=== PATIENT | female | born 1980 | race Caucasian/White ===

== ENCOUNTER 2018-09-12 20:40 | Inpatient (IN) | payer BC, OTHER ==
[~2018-09-12] VITALS: Ht 152.4 cm; Wt 76.2 kg
[2018-09-12] MEDS ORDERED: FAMOTIDINE 20MG/2ML VIAL IV STA (21:09)
[2018-09-12] MEDS ORDERED: SODIUM CHLORIDE 0.9% 1,000 ML IV ONE (21:09)
[2018-09-12] MEDS ORDERED: KETOROLAC 30MG/ML VIAL IV STA (21:09)
[2018-09-12] MEDS ORDERED: ONDANSETRON HCL 4MG/2ML INJ IV STA (21:09)
[2018-09-12] MEDS ORDERED: METRONIDAZOLE 500 MG PREMIX 100 ML IV ONE (21:15)
[2018-09-12 21:59] LABS: BASOPHILS % 0.5 % (0.0-2.0); EOSINOPHILS % 0.4 % (0.0-5.0); HEMATOCRIT. 39.1 % (36.0-48.0); HEMOGLOBIN. 12.9 g/dL (12.0-16.0); LYMPHOCYTES % 10.3 % (20.0-50.0); MEAN CORPUSCULAR HEMOGLOBIN 26.4 pg (28.0-32.0); MEAN CORPUSCULAR VOLUME 80.4 fL (81.0-99.0); MEAN PLATELET VOLUME 10.1 fl (7.4-10.4); NEUTROPHILS % 85.8 % (40.0-76.0); PLATELET 217 x1000/uL (130-400); RED BLOOD CELL COUNT 4.87 mill/uL (4.2-5.4); RED CELL DISTRIBUTION WIDTH 15.2 % (11.6-14.6)
[2018-09-12 22:03] LABS: CHLORIDE 106 mEq/L (98-107)
[2018-09-12 22:23] LABS: HCG SCREEN NEGATIVE
[2018-09-12 23:32] LABS: CLARITY URINE CLOUDY (CLEAR); COLOR URINE YELLOW (YELLOW); KETONES URINE 4+ (NEGATIVE); LEUKOCYTE ESTERASE URINE NEGATIVE (NEGATIVE); NITRITE URINE NEGATIVE (NEGATIVE); OCCULT BLOOD URINE NEGATIVE (NEGATIVE); PROTEIN URINE NEGATIVE (NEGATIVE); SPECIFIC GRAVITY URINE 1.031 (1.005-1.030); UROBILINOGEN URINE 0.2 E.U./dL (0.2-1.0)
[2018-09-13] MEDS ORDERED: LEVOFLOXACIN 750MG PREMIX 150 ML IV ONE (02:15)
[2018-09-13] MEDS ORDERED: IOHEXOL-300 100 ML BOTTLE ONE (03:02)
[2018-09-13] MEDS ORDERED: MAGNESIUM/ALUMINUM HYDROXIDE/SIMETHICONE 30ML UDC PO PRN (05:45)
[2018-09-13] MEDS ORDERED: MORPHINE SULFATE 4 MG/ML CPJ (NOT FOR IM USE) IV PRN (05:45)
[2018-09-13] MEDS ORDERED: IPRATROPIUM/ALBUTEROL 0.5-3(2.5)MG/3ML NEB INH PRN (05:45)
[2018-09-13] MEDS ORDERED: CLONIDINE 0.1MG TABLET PO PRN (05:45)
[2018-09-13] MEDS ORDERED: DIPHENHYDRAMINE 50MG/ML VIAL IV PRN (05:45)
[2018-09-13] MEDS ORDERED: LORAZEPAM 2MG/ML CPJ IV PRN (05:45)
[2018-09-13] MEDS ORDERED: GUAIFENESIN 200MG/10ML SUGAR FREE UDC PO PRN (05:45)
[2018-09-13] MEDS ORDERED: DOCUSATE SODIUM 100MG CAPSULE PO PRN (05:45)
[2018-09-13] MEDS ORDERED: HYDROCODONE/ACETAMINOPHEN 5/325MG TABLET PO PRN (05:45)
[2018-09-13] MEDS ORDERED: LEVOFLOXACIN 500MG PREMIX 100 ML IV SCH ×2 (05:45→21:00)
[2018-09-13] MEDS ORDERED: NA PHOS,M-B/NA PHOS,DI-BA ENEMA 118ML PR PRN (05:45)
[2018-09-13] MEDS ORDERED: ONDANSETRON HCL 4MG/2ML INJ IV PRN (05:45)
[2018-09-13] MEDS ORDERED: METRONIDAZOLE 500 MG PREMIX 100 ML IV SCH ×2 (06:00→06:30)
[2018-09-13 07:04] LABS: CHLORIDE 108 mEq/L (98-107)
[2018-09-13 09:16] VITALS: BP 134/54
[2018-09-13 09:21] VITALS: BP 134/54
[2018-09-13] MEDS: ACETAMINOPHEN 325MG TABLET PO PRN ×2 (09:43→20:03)
[2018-09-13] MEDS: SODIUM CHLORIDE 0.45% 1,000 ML IV SCH (11:59)
[2018-09-13] MEDS: METRONIDAZOLE 500 MG PREMIX 100 ML IV SCH ×3 (11:59→22:05)
[2018-09-13] MEDS: ENOXAPARIN 40MG/0.4ML SYR SUBCUT SCH (12:00)
[2018-09-13 12:20] VITALS: BP 152/58
[2018-09-13 15:40] VITALS: BP 118/51
[2018-09-13 20:00] VITALS: BP 115/50
[2018-09-14] VITALS: BP 134/58
[2018-09-14] MEDS: SODIUM CHLORIDE 0.45% 1,000 ML IV SCH (02:40)
[2018-09-14 04:00] VITALS: BP 126/52
[2018-09-14] MEDS: METRONIDAZOLE 500 MG PREMIX 100 ML IV SCH (06:19)
[2018-09-14 06:51] LABS: BASOPHILS % 0.5 % (0.0-2.0); HEMATOCRIT. 36.2 % (36.0-48.0); HEMOGLOBIN. 11.9 g/dL (12.0-16.0); LYMPHOCYTES % 43.4 % (20.0-50.0); MEAN CORPUSCULAR HEMOGLOBIN 26.5 pg (28.0-32.0); MEAN CORPUSCULAR VOLUME 80.4 fL (81.0-99.0); MEAN PLATELET VOLUME 10.6 fl (7.4-10.4); MONOCYTES % 6.8 % (2.0-8.0); NEUTROPHILS % 46.3 % (40.0-76.0); PLATELET 167 x1000/uL (130-400)
[2018-09-14 07:23] LABS: CHLORIDE 107 mEq/L (98-107)
[2018-09-14 07:37] VITALS: BP 140/62
[2018-09-14 07:40] LABS: HDL CHOLESTEROL 25 mg/dL (40-59); LDL CHOLESTEROL 102 mg/dL (5-100)
[2018-09-14] MEDS: ENOXAPARIN 40MG/0.4ML SYR SUBCUT SCH (08:31)
[2018-09-14] MEDS: ACETAMINOPHEN 325MG TABLET PO PRN (08:31)
== END 2018-09-14 11:15 | disposition home or self-care (01) | DRG 392 ==
LOC: ER 21:16 → 6WST 09-13 03:18 → ENRESERV 09-13 08:15
PROVIDERS: ADMIT Internal Medicine; ATTEND Internal Medicine
DX: K52.9 Noninfective gastroenteritis and colitis, unspecified (principal); K29.70 Gastritis, unspecified, without bleeding; E86.0 Dehydration; F41.9 Anxiety disorder, unspecified
CPT/HCPCS: 36415; 71045; 74177; 80048; 80061; 84703; 93005; 96365; 96367; 96375; 99285; J1650; J1885; J1956; J2405; J3490; J7030; Q9967

== ENCOUNTER 2018-09-14 22:13 | Emergency (ER) | payer BC ==
[~2018-09-14] VITALS: Ht 152.4 cm; Wt 79.0 kg
[2018-09-15] MEDS ORDERED: ONDANSETRON HCL 4MG/2ML INJ IV ONE
[2018-09-15] MEDS ORDERED: SODIUM CHLORIDE 0.9% 1,000 ML IV ONE
[2018-09-15 00:44] LABS: BASOPHILS % 0.5 % (0.0-2.0); EOSINOPHILS % 0.4 % (0.0-5.0); HEMATOCRIT. 37.5 % (36.0-48.0); HEMOGLOBIN. 12.3 g/dL (12.0-16.0); LYMPHOCYTES % 12.9 % (20.0-50.0); MEAN CORPUSCULAR HEMOGLOBIN 26.3 pg (28.0-32.0); MEAN CORPUSCULAR VOLUME 80.2 fL (81.0-99.0); MEAN PLATELET VOLUME 10.2 fl (7.4-10.4); MONOCYTES % 4.3 % (2.0-8.0); NEUTROPHILS % 81.9 % (40.0-76.0); PLATELET 167 x1000/uL (130-400); RED BLOOD CELL COUNT 4.68 mill/uL (4.2-5.4)
[2018-09-15] MEDS ORDERED: KETOROLAC 30MG/ML VIAL IV ONE (00:45)
[2018-09-15 00:56] LABS: CHLORIDE 105 mEq/L (98-107)
[2018-09-15 01:47] LABS: CLARITY URINE CLOUDY (CLEAR); COLOR URINE YELLOW (YELLOW); KETONES URINE 4+ (NEGATIVE); LEUKOCYTE ESTERASE URINE NEGATIVE (NEGATIVE); NITRITE URINE NEGATIVE (NEGATIVE); OCCULT BLOOD URINE NEGATIVE (NEGATIVE); PH URINE 6.5 (4.5-8.0); PROTEIN URINE NEGATIVE (NEGATIVE); SPECIFIC GRAVITY URINE 1.022 (1.005-1.030); UROBILINOGEN URINE 0.2 E.U./dL (0.2-1.0)
[2018-09-15] MEDS ORDERED: DIPHENHYDRAMINE 50MG/ML VIAL IV ONE (03:00)
[2018-09-15] MEDS ORDERED: METOCLOPRAMIDE HCL 10MG/2ML VIAL IV ONE (03:00)
[2018-09-15 04:48] VITALS: BP 100/51
== END 2018-09-15 04:56 | disposition home or self-care (01) ==
LOC: ER 22:13
DX: R51 Headache (principal)
CPT/HCPCS: 36415; 80053; 81003; 81025; 83690; 85025; 85610; 96361; 96374; 96375; 99285; J1200; J1885; J2405; J2765; J7030